=== PATIENT | female | born 1995 | race Caucasian/White ===

== ENCOUNTER 2019-07-28 17:00 | Outpatient (CLI) | payer BC, SELFPAY ==
--- NOTE | ~2019-07-28 | MR_ITS ---
EXAMINATION: MR lumbar spine wo con DATE: 07/28/2019 18:12 INDICATION: Chronic low back pain. Lumbar disc displacement. TECHNIQUE: Magnetic resonance imaging (MRI) of the lumbar spine was performed without intravenous con trast. Sequences included sagittal T2-weighted FSE, sagittal T2-weighted FS FSE, sagittal T1-weighted FSE, and axial T2-weighted FSE. COMPARISON: None FINDINGS: There is 5 degrees levocurvature of lumbar spine. Vertebral body heights and intervertebral disc heights are normal. The distal spinal cord signal intensity is normal. The conus medullaris is at T12-L1. The following disc levels are specifically discussed: L1-L2 through L3-L4: The disc does not extend beyond the endplate margin. There is no facet joint ost eoarthritis. There is no neural foraminal stenosis. There is no central canal stenosis. L4-L5: The disc is bulging. There is mild bilateral facet joint osteoarthritis. There is mild bilater al neural foraminal stenosis. There is mild central canal stenosis. L5-S1: The disc does not extend beyond the endplate margin. There is no facet joint osteoarthritis. T here is no neural foraminal stenosis. There is no central canal stenosis. IMPRESSION: 1. Mild spondylosis at L4-L5. Reviewed, dictated and finalized at location E.
== END 2019-07-28 17:01 | disposition home or self-care (01) ==
DX: M47.896 Other spondylosis, lumbar region (principal)
CPT/HCPCS: 72148

== ENCOUNTER 2020-08-07 19:30 | Emergency (ER) | payer SELFPAY ==
--- NOTE | 2020-08-07 19:39 | ED.URI ---
HPI - URI/Sore Throat General Chief Complaint: Upper Respiratory Infection Stated Complaint: sore throat Time Seen by Provider: 08/07/20 19:39 Source: patient Mode of arrival: ambulatory Limitations: no limitations History of Present Illness HPI Narrative: Tania Anne is 25-year-old female with a PMH of depression, who comes to [facility] with complaints of sinus pain and sore throat x 2 days. Patient states it hurts to swallow but she still able to drink and eat some she has not had a fever that she is aware of but states that her left side of her neck and throat are quite painful. States feels exhausted Related Data Home Medications Medication Instructions Recorded Confirmed escitalopram oxalate 10 mg DAILY 08/07/20 08/07/20 Allergies Allergy/AdvReac Type Severity Reaction Status Date / Time No Known Allergies Allergy Verified 08/07/20 19:41 Review of Systems Review of Systems: Narrative: CONSTITUTIONAL: Denies fever, chills, sweats. EYES: Denies visual changes, redness, discharge. ENT: Denies rhinorrhea, congestion, has sore throat sore throat, enlarged glands on the left particularly, no otalgia. CARDIOVASCULAR: Denies chest pain, palpitations, edema. RESPIRATORY: Denies dyspnea, wheezing, cough GASTROINTESTINAL: Denies abdominal pain, nausea, vomiting, diarrhea. GENITOURINARY: Denies dysuria, hematuria, abnormal discharge SKIN: Denies rash or itching. NEUROLOGIC: Denies numbness, or focal weakness. PSYCHIATRIC: Denies anxiety or depression. PMFSH Past Medical History Medical History No acute medical problems Family History Family History Other No acute medical problems Social History Social History (Updated 08/07/20 @ 19:47 by Cait Hedrick CNP) Smoking status: Never smoker Alcohol intake: current Living arrangements: with roommate(s) Occupation/Education: student Gender identity (if verbalized by the patient): Female Comments At time of signature, I agree with nursing past medical, surgical, social and family history. There is no relevant family history pertinent to the presenting complaint. Exam Narrative: Exam Narrative: GENERAL: This is a well-nourished, well-developed patient, in mild distress. HEAD: normocephalic, atraumatic. EYES: Sclera clear/white. Vision is grossly intact. EARS: External ears normal, auditory canals clear and without drainage, TMs normal without perforation. Hearing grossly intact. NOSE: External nose normal without nasal discharge, nares without redness, no rhinorrhea. THROAT: Mucous membranes moist, posterior pharynx erythema with enlarged submandibular lymph nodes particularly on the left, and left-sided throat NECK: Neck supple, tender CARDIOVASCULAR: Regular rate and rhythm without murmurs, gallops, or rubs. RESPIRATORY: Clear to auscultation. Breath sounds equal bilaterally. No wheezes, rales, or rhonchi. GASTROINTESTINAL: Abdomen soft, SKIN: warm, intact with no suspicious lesions or rash, good texture and turgor. NEURO: awake, alert, and oriented to person, place and time. There were no obvious focal neurologic abnormalities. Steady gait EXTREMITIES: Normal range of motion. BACK: Nontender without deformity Course Course Emergency Course: Patient comes to [facility] with complaints of sore throat that started 2 days ago-has worsened in this time Strep test done-positive Patient will be started on amoxicillin 500 mg 1 twice daily x10 days, ibuprofen just for throat pain, Tylenol or ibuprofen for pain Should not go to work or school for 24 hours until she has taken a days worth of antibiotics Use good handwashing do not share towels or utensils with others Vital Signs Vital signs: Vital Signs Temperature 99.3 F 08/07/20 19:46 Pulse Rate 73 08/07/20 19:46 Respiratory Rate 20 08/07/20 19:46 Blood Pressure 11
[2020-08-07 19:46] VITALS: BP 119/72; PULSE 73; RESP 20; TEMP 37.4; O2SAT 99
== END 2020-08-07 19:54 | disposition home or self-care (01) ==
PROVIDERS: Emergency Provider Nurse Practitioner
DX: J02.0 Streptococcal pharyngitis (principal)
CPT/HCPCS: 87880; 99213; G0463